=== PATIENT | male | born 1990 | race American Indian/Alaskan Native ===

== ENCOUNTER 2021-12-11 19:55 | Emergency (ER) | payer BC ==
[2021-12-11 20:49] VITALS: BP 98/70
--- NOTE | 2021-12-11 22:25 | XRay Report ---
CHEST 2 VIEWS INDICATION / CLINICAL INFORMATION: sob. COMPARISON: None available. FINDINGS: SUPPORT DEVICES: None. HEART / MEDIASTINUM: No significant abnormality. LUNGS / PLEURA: No significant pulmonary or pleural abnormality. No pneumothorax. ADDITIONAL FINDINGS: No significant additional findings. IMPRESSION: 1. No acute findings. Signer Name: Stoney Nash DO Signed: 12/11/2021 10:21 PM Workstation Name: [id number]
== END 2021-12-11 22:00 | disposition left against medical advice (07) ==
LOC: ED 19:55
DX: R07.9 Chest pain, unspecified (principal); R06.02 Shortness of breath; Z53.21 Procedure and treatment not carried out due to patient leaving prior to being seen by health care provider
CPT/HCPCS: 71046